=== PATIENT | female | born 1955 | race Caucasian/White ===

== ENCOUNTER 2017-03-11 03:06 | Emergency (ER) | payer SELFPAY ==
[~2017-03-11] VITALS: Ht 167.6 cm; Wt 68.2 kg
[2017-03-11 03:09] VITALS: TEMP 97
[2017-03-11] MEDS ORDERED: TOPROL XL100 MG PO (03:13)
[2017-03-11] MEDS ORDERED: ABILIFY30 MG PO (03:14)
[2017-03-11] MEDS ORDERED: LATUDA120 MG PO (03:14)
[2017-03-11] MEDS ORDERED: ATARAX 10MG10 MG/TAB PO (03:55)
[2017-03-11 11:05] VITALS: BP 127/87; PULSE 64
== END 2017-03-11 11:04 | disposition home or self-care (01) ==
LOC: COL.ER 03:06
DX: S00.93XA Contusion of unspecified part of head, initial encounter (principal); S70.02XA Contusion of left hip, initial encounter; Z90.89 Acquired absence of other organs; V89.9XXA Person injured in unspecified vehicle accident, initial encounter